=== PATIENT | male | born 1995 | race Two or more races ===

== ENCOUNTER 2022-09-03 15:29 | Emergency (ER) | payer SELFPAY ==
[2022-09-03 15:47] VITALS: BP 164/89; RESP 18; TEMP 36.6; O2SAT 99; BMI 34.5
--- NOTE | 2022-09-03 16:17 | ED_ITS ---
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 He does not report any injury event or strenuous activity to bring about this pain. He states that the pain radiates into his right buttock. He has been taking Tylenol without much relief. Related Data Previous Rx's Medication Instructions Recorded cyclobenzaprine 10 mg tablet 10 mg PO TID #15 tabs 09/03/22 hydrocodone 5 mg-acetaminophen 325 1 tab PO Q4-6H PRN pain #20 tabs 09/03/22 mg tablet ketorolac 10 mg tablet 10 mg PO Q8H 5 days #15 tabs 09/03/22 methylprednisolone 4 mg tablets in See Rx Instructions PO .COMPLEX 09/03/22 a dose pack (Medrol (Ishaan)) #21 ea Allergies Allergy/AdvReac Type Severity Reaction Status Date / Time No Known Drug Allergies Allergy Verified 09/03/22 15:51 Review of Systems Status of ROS: Reports: 10 or more systems reviewed and unremarkable except as noted in History and below Narrative: Constitutional: No fevers, no weight gain or loss. Eyes: No discharge. No vision changes. HENT: No congestion, no sore throat, no ear pain. Cardiovascular: No chest pain, no palpitations. Respiratory: No shortness of breath, no wheezes, no cough. Gastrointestinal: No abdominal pain, no vomiting, no diarrhea. Genitourinary: No dysuria, no hematuria. Musculoskeletal: Normal range of motion. Low back pain as described above. Skin: No rashes, no pruritis. Neurological: No dizziness, weakness, sensory change, speech change. Endo/Heme/Allergies: No bruising or bleeding. No polydipsia. Pysch: no suicidality, no anxiety, no insomnia. All other systems reviewed and are negative. PFSH PFSH Social History Smoking Status: Never smoker Do you use any of these nicotine containing products: None Second hand tobacco smoke exposure: No How often do you have a drink containing alcohol: never How often do you have six or more drinks on one occasion: Never AUDIT-C Alcohol total score: 0 Non-prescribed substance use: denies use service: No Exam Narrative: Exam Narrative: Constitutional: Well-developed, well-nourished, no acute distress. HEENT: Normocephalic, atraumatic. Neck: Normal range of motion. Nontender. Supple. Heart: Intact distal pulses. Lungs: No chest discomfort. No wheezes, rhonchi, or rales. Abdomen: Nontender. Back: Pain in the lower back radiating into the right buttock. Straight leg raise of the right leg is positive. Extremities: Normal range of motion. No injury. Skin: Intact. No rash. Warm. No erythema or pallor. Neurologic: No altered sensation. No weakness. Alert and oriented. Psychiatric: No suicidality. No anxiety or depression. No insomnia. Nursing notes and vitals signs are reviewed. Const: Vital Signs, click to edit/add: Vital Signs - 24 hr 09/03/22 15:47 Temperature 97.8 F Respiratory Rate 18 Blood Pressure [Ri ght Upper Arm] 164/89 H Pulse Oximetry 99 Oxygen Delivery Me thod Room Air Course Vital Signs Vital signs: Initial Vital Signs Temperature 97.8 F 09/03/22 15:47 Temperature Source Temporal Artery Scan 09/03/22 15:47 Respiratory Rate 18 09/03/22 15:47 Blood Pressure 164/89 H 09/03/22 15:47 Blood Pressure Mean 114 H 09/03/22 15:47 Blood Pressure Position Sitting 09/03/22 15:47 Pulse Oximetry 99 09/03/22 15:47 Oxygen Delivery Method Room Air 09/03/22 15:47 Vital Signs Temperature 97.8 F 09/03/22 15:47 Respiratory Rate 18 09/03/22 15:47 Blood Pressure 164/89 H 09/03/22 15:47 Pulse Oximetry 99 09/03/22 15:47 Oxygen Delivery Method Room Air 09/03/22 15:47 Temperature 97.8 F 09/03/22 15:47 Respiratory Rate 18 09/03/22 15:47 Blood Pressure 164/89 H 09/03/22 15:47 Pulse Oximetry 99 09/03/22 15:47 Oxygen Delivery Method Room Air 09/03/22 15:47 MDM - Back Pain/Injury MDM Narrative Medical decision making narrative: This patient comes in with low back pain radiating somewhat into his right lower leg. There was no significant injury event or strenuous activity that mandates imaging at this time. He may need MRI imaging if not improving. Today the patient received prescriptions for Toradol, Beaman, Medrol Dosepak, and Flexeril. I advised him to follow-up with our spine clinic if not improving or if worsen ing. Discharge Plan Discharge Clinical Impression: Lumbar radiculopathy Patient Disposition: Home, Self-Care Condition: Unchanged Additional Instructions: Take medications as prescribed and needed. Activity as tolerated. Follow up with Spine Clinic if not improving or worsening. Call for appointment by dialing [phone]. [place] los medicamentos seg?n lo prescrito y necesario. Actividad seg?n tolerancia. Jerm[place] un seguimiento con Spine Clinic si no mejora o empeora. Pide marlen llamando al [phone] Prescriptions: New cyclobenzaprine 10 mg tablet 10 mg PO TID Qty: 15 0RF hydrocodone-acetaminophen 5-325 mg tablet 1 tab PO Q4-6H PRN (Reason: pain) Qty: 20 0RF ketorolac 10 mg tablet 10 mg PO Q8H 5 Days Qty: 15 0RF methylprednisolone [Medrol (Ishaan)] 4 mg tablets,dose pack See Rx Instructions .ROUTE .COMPLEX Qty: 21 0RF Rx Instructions: orally per package directions Stand Alone Forms: MyHealth Info Instructions
== END 2022-09-03 16:43 | disposition home or self-care (01) ==
PROVIDERS: Emergency Provider Emergency Medicine Emergency Medical Services
DX: M54.16 Radiculopathy, lumbar region (principal)
CPT/HCPCS: 99283; 99284